=== PATIENT | female | born 1960 | race Caucasian/White ===

== ENCOUNTER 2017-04-20 08:59 | Day surgery (SDC) | payer BC ==
[~2017-04-20 08:59] MED LIST: RINGERS SOLUTION,LACTATED 1,000 ML IV PRN
[2017-04-20] MEDS ORDERED: RINGERS SOLUTION,LACTATED 1,000 ML IV ONE ×2 (09:20→11:40)
[2017-04-20] MEDS ORDERED: PANTOPRAZOLE SODIUM 40 MG in NORMAL SALINE 100 ML IV ONE (11:16)
[2017-04-20] MEDS ORDERED: RINGERS SOLUTION,LACTATED 1,000 ML IV PRN (11:16)
[2017-04-20] MEDS ORDERED: PANTOPRAZOLE SODIUM 40 MG/100 ML PIGGYBACK IV ONE (11:35)
[2017-04-20 12:16] VITALS: BP 130/72
--- NOTE | 2017-04-20 18:39 | OR ---
Operative Report - Dictated Report Narrative: Operative Report Date of operation: 04/20/2017 Preoperative diagnosis: Dysphagia Postoperative diagnosis: Esophagitis with narrowing (pathology pending). Hiatal hernia. Multiple punctate distal antral gastric ulcerations (pathology and CLOtest pending) Operation: EGD with biopsies. Balloon esophageal dilation to 20 mm Surgeon: Dr Morris Anesthesia: LETA SORIA CRNA Indications for procedure: The patient is a 56-year-old female referred by Dr. Gene Beasley. She has a 2 month history of dysphagia for solid foods which lodged at the subxiphoid level. She has several episodes of near obstruction requiring vomiting. Findings: Hiatal hernia with severe GE junction inflammation/edema. Multiple 2 -3 millimeter punctate distal gastric erosions and gastropathy Narrative of procedure: The patient was identified preoperatively, and prior to the administration of anesthetic a multidisciplinary timeout was observed With the patient in the recumbent position, a bite-block was placed, intravenous sedation administered, and the patient's eyes covered with a towel. The flexible fiberoptic gastroscope was advanced into the posterior pharynx which appeared normal. The supraglottic larynx appeared normal. The cords appeared normal, moved well, and opposed in the midline. The scope was advanced under direct vision into the proximal esophagus which appeared normal. The esophagus appeared freely distensible with normal mucosa. The esophageal mucosa appeared normal down to the gastroesophageal junction which was inflamed and markedly edematous. There was a small hiatal hernia. The scope was advanced into the stomach proper which was insufflated with air. Immediately apparent was patent gastric erythema with multiple prepyloric 1-2 millimeter ulcerations. A retroflexed view of the gastric fundus revealed an gastric erythema, demonstrated the hiatal hernia, but revealed no additional lesions. The scope was redirected toward the pylorus. The distal stomach was photographed. The pylorus appeared patent. The scope was advanced into the duodenal bulb which appeared normal. The scope was advanced further to the horizontal portion of the duodenum which appeared normal, specifically the villous architecture appeared well preserved and clear bile was present. The scope was slowly withdrawn through the duodenal bulb with confirmation that no active ulcer was present. The scope was withdrawn into the stomach and health and safety representative biopsies of gastric mucosa obtained for CLOtest and pathology. The biopsy sites were seen to be hemostatic. The insufflated air was removed from the stomach, and a balloon dilator deployed. The scope withdrawn until the balloon was placed across the GE junction which was dilated in stages to 20 mm. The balloon then passed freely through the area. There was a small amount of bleeding which had stopped by the end of the exam. The insufflated air was removed from the stomach, the scope was withdrawn from the patient, and the procedure terminated. The patient tolerated the anesthetic and procedure well without complication and was transferred back to the ambulatory surgery area awake and in stable condition. The patient remained stable throughout a period of postoperative observation, was able to tolerate po intake, and was up without assistance. She denied chest pain. I shared the operative findings with her, and she was given copies of the photographs which appear in the medical record. She was given a single dose of Protonix 40 mg IV prior to discharge. She was discharged home with instructions not to engage in hazardous activity today, but may return to normal activity tomorrow and advance diet as tolerated. She is to continue medications as listed in the history and physical exam. I made arrangements to contact the patient with the biopsy reports and will make further recommendation based upon that result. Reviewed N electronically signed
== END 2017-04-20 09:00 | disposition home or self-care (01) ==
LOC: AMB 08:59
PROVIDERS: ATTEND Surgery
PROC: 0D748ZZ Dilation of Esophagogastric Junction, Via Natural or Artificial Opening Endoscopic (ICD-10-PCS; 2017-04-20)
PROC: 0DB68ZX Excision of Stomach, Via Natural or Artificial Opening Endoscopic, Diagnostic (ICD-10-PCS; principal; 2017-04-20 10:15)
DX: K20.9 Esophagitis, unspecified (principal); K44.9 Diaphragmatic hernia without obstruction or gangrene; K29.70 Gastritis, unspecified, without bleeding; K22.2 Esophageal obstruction; K25.9 Gastric ulcer, unspecified as acute or chronic, without hemorrhage or perforation; J44.9 Chronic obstructive pulmonary disease, unspecified; J45.40 Moderate persistent asthma, uncomplicated; Z87.891 Personal history of nicotine dependence; Z68.25 Body mass index [BMI] 25.0-25.9, adult